=== PATIENT | male | born 1950 | race Caucasian/White ===

== ENCOUNTER 2020-09-09 06:57 | Day surgery (SDC) | payer MEDICARE, BC ==
--- NOTE | 2020-09-06 10:20 | PCM.PREANE ---
Preanesthetic Assessment - Procedure Proposed Procedure: Right Total Hip Arthroplasty - Anesthesia/Transfusion/Family Hx Anesthesia History: Prior Anesthesia Without Reaction Family History of Anesthesia Reaction: No Transfusion History: No Prior Transfusion(s) Intubation History: Unknown - Review of Systems General: No Symptoms Pulmonary: No Symptoms (ETOH: 1-2 beers per 2 week), Cough (dry allergy cough/post nasal drip) Cardiovascular: No Symptoms (HTN, elevated cholesterol, benign prostate hypertrophy) Gastrointestinal: No Symptoms (GERD-controlled) Neurological: No Symptoms Other: Reports: Sinus Problem (chronic sinus with also seasonal allergies noted.) - Physical Assessment NPO Status Date: 09/08/20 NPO Status Time: 21:00 Vital Signs: HR:68 Sat:97% Resp:16 B/P:145/76 Temp:97.5 Height: 1.8 m Weight: 83 kg ASA Class: 2 Mental Status: Alert & Oriented x3 Airway Class: Mallampati = 2 Dentition: Reports: Normal Dentition, Caries Thyro-Mental Finger Breadths: 3 Mouth Opening Finger Breadths: 3 ROM/Head Extension: Full Lungs: Clear to Auscultation, Normal Respiratory Effort Cardiovascular: Regular Rate, Regular Rhythm, No Murmurs - Lab Values: Laboratory Last Values MRSA (PCR) Negative 08/28/20 12:23 All labs reviewed and noted and within acceptable ranges to proceed with scheduled procedure. - Imaging/EKG Impressions: EKG: SR rate= 58, probable left atrial enlargement CXR: Spondylotic changes in spine. - Allergies Allergies/Adverse Reactions: Allergies Allergy/AdvReac Type Severity Reaction Status Date / Time No Known Allergies Allergy Verified 09/06/20 16:26 - Anesthesia Plan Pre-Op Medication Ordered: Other (PREOP oral meds(lyrica, tylenol, oxycodone) @0710) - Acknowledgements Anesthesia Type Planned: General Anesthesia, Spinal Pt an Appropriate Candidate for the Planned Anesthesia: Yes Alternatives and Risks of Anesthesia Discussed w Pt/Guardian: Yes Pt/Guardian Understands and Agrees with Anesthesia Plan: Yes PreAnesthesia Questionnaire - HOME MEDS Home Medications: Home Meds Cholecalciferol (Vitamin D3) [Vitamin D3] 5,000 unit PO DAILY 09/06/20 [History] Losartan [Cozaar] 100 mg PO DAILY 09/06/20 [History] Pantoprazole Sodium [Protonix] 40 mg PO DAILY 09/06/20 [History] Sildenafil [Viagra] 100 mg PO ASDIRECTED PRN 09/06/20 [History] hydroCHLOROthiazide [Hydrochlorothiazide] 25 mg PO DAILY 09/06/20 [History] Cyclobenzaprine [Flexeril] 10 mg PO BID PRN #20 tab 09/09/20 [Rx] Rivaroxaban [Xarelto] 10 mg PO DAILY #35 tab 09/09/20 [Rx] oxyCODONE 5 - 10 mg PO Q4H PRN #60 tab 09/09/20 [Rx] - CURRENT (IN HOUSE) MEDS Current Meds: Current Medications Morphine Sulfate 8 mg/Epinephrine HCl 0.3 mg/Cefuroxime Sodium 750 mg/Ketorolac Tromethamine 30 mg/Sodium Chloride 7.9 ml 0 mg .XX ASDIRECTED PRN PRN Reason: Pain Stop: 09/09/20 23:00 Lactated Ringer's (Ringers, Lactated) 1,000 mls @ 125 mls/hr IV ASDIRECTED JANETH Stop: 09/09/20 23:00 Lidocaine/Sodium Bicarbonate (Buffered Lidocaine 1% In Ns 8.4%) 0.25 ml IDERM ONETIME PRN PRN Reason: Prior to IV Start Stop: 09/09/20 18:00 Sodium Chloride (Saline Flush) 10 ml FLUSH ASDIRECTED PRN PRN Reason: Keep Vein Open Stop: 09/09/20 18:00
[~2020-09-09 06:57] MED LIST: Acetaminophen 325 MG Tab PO SCH; Ketamine 500 mg/10 ML MDV ONE; Ketorolac 30 MG/ML SDV ONE; Lactated Ringers 1,000 ML IV SCH; Lactated Ringers 1,000 ML ONE; Lidocaine 1% 4 ML ONE; Lidocaine 1%/Sod Bicarbonate in NS 8.4% 1 ML Syringe IDERM PRN; Midazolam 1 MG/ML 2 ML SDV ONE; Morphine 8 MG, EPINEPHrine 0.3 MG, Cefuroxime 750 MG, Ketorolac 30 MG, Sodium Chloride ... PRN; Ondansetron 4 MG/2 ML SDV ONE; Pregabalin 25 MG Cap PO SCH; Propofol 200 MG/20 ML SDV ONE; Sodium Chloride 0.9% 10 ML Syringe FLUSH PRN; ceFAZolin 1 GM Vial ONE; fentaNYL 100 MCG/2 ML SDV ONE; oxyCODONE ER 10 MG TAB.ER PO SCH
[2020-09-09] MEDS ORDERED: Vancomycin 1 GM SDV ONE (07:33)
[2020-09-09] MEDS ORDERED: Bupivacaine 0.25% 10 ML SDV ONE (07:33)
[2020-09-09] MEDS ORDERED: ePHEDrine 50 MG/ML SDV IVPUSH PRN (08:26)
[2020-09-09] MEDS ORDERED: fentaNYL 100 MCG/2 ML SDV IVPUSH PRN (08:26)
[2020-09-09] MEDS ORDERED: Ondansetron 4 MG/2 ML SDV IVPUSH PRN (08:26)
[2020-09-09] MEDS ORDERED: diphenhydrAMINE 50 MG/ML SDV IVPUSH PRN (08:26)
[2020-09-09] MEDS ORDERED: HYDROmorphone 0.5 MG/0.5 ML Syringe IVPUSH PRN (08:27)
[2020-09-09] MEDS ORDERED: Albuterol 0.083% 2.5 MG/3 ML Neb Soln NEB PRN (08:27)
[2020-09-09] MEDS ORDERED: Lactated Ringers 1,000 ML ONE ×2 (08:37)
[2020-09-09] MEDS ORDERED: ePHEDrine Sulfate/0.9% NaCl/Pf 25 MG/5 ML SYRINGE IV ONE (08:47)
[2020-09-09] MEDS ORDERED: Propofol 200 MG/20 ML SDV ONE (09:16)
--- NOTE | 2020-09-09 09:52 | PCM.POSTAN ---
POST ANESTHESIA ASSESSMENT - MENTAL STATUS Mental Status: Alert - VITAL SIGNS Vital Signs: Last Vital Signs Temp 98.1 09/09/20947 Pulse 57 09/09/20947 Resp 14 09/09/20947 BP 98/52 09/09/20947 Pulse Ox 97% 09/09/20947 - RESPIRATORY Respiratory Status: Respiratory Rate WNL, Airway Patent, O2 Saturation Stable, Supplemental Oxygen - CARDIOVASCULAR CV Status: Pulse Rate WNL, Blood Pressure Stable - GASTROINTESTINAL GI Status: No Symptoms - POST OP HYDRATION Hydration Status: Adequate & Stable
--- NOTE | 2020-09-09 10:46 | PCM48HPAN ---
Post Anesthesia Note - EVALUATION WITHIN 48HRS OF ANESTHETIC Vital Signs in Normal Range: Yes Patient Participated in Evaluation: Yes Respiratory Function Stable: Yes Airway Patent: Yes Cardiovascular Function Stable: Yes Hydration Status Stable: Yes Pain Control Satisfactory: Yes Nausea and Vomiting Control Satisfactory: Yes Mental Status Recovered: Yes Vital Signs: Last Vital Signs Temp 36.4 C 09/09/20 10:40 Pulse 68 09/09/20 07:00 Resp 14 09/09/20 10:40 BP 113/66 09/09/20 10:40 Pulse Ox 95 09/09/20 10:40 - COMMENTS/OBSERVATIONS Free Text/Narrative:: PACU nurse noted some PAC's in recovery with patient remaining asymptomatic.
[2020-09-09] MEDS ORDERED: oxyCODONE 5 MG Tab PO PRN (11:00)
--- NOTE | 2020-09-16 09:57 | PCM.OPNOTE ---
- General Post-Op/Procedure Note Date of Surgery/Procedure: 09/09/20 Operative Procedure(s): right total hip arthroplasty Pre Op Diagnosis: right hip osteoarthrosis Post-Op Diagnosis: Same Anesthesia Technique: Local, MAC, Spinal Primary Surgeon: Pb Carrillo Anesthesia Provider: Stephy Rubio Grave Digger: Christina Bhatia Grave Digger: Natalee Encarnacion EBL in mLs: 150 Complications: None Condition: Good Free Text/Narrative:: 56 cup 5 stem 28-2.7 MDM
--- NOTE | 2020-09-18 13:52 | OR ---
DATE OF OPERATION: 09/09/2020 SURGEON: Pb Carrillo MD OPERATION PERFORMED: Right total hip arthroplasty. PREOPERATIVE DIAGNOSIS: Right hip osteoarthrosis. POSTOPERATIVE DIAGNOSIS: Right hip osteoarthrosis. ANESTHESIA: Local MAC with spinal. ANESTHESIA PROVIDER: . ASSISTANTS: Christina Bhatia PA-C, and Natalee Encarnacion LPN. ESTIMATED BLOOD LOSS: 150 mL. COMPLICATIONS: None. CONDITION: Stable. IMPLANTS: 1. [place] size 56 mm Tritanium acetabular solid cup. 2. [place] size 5 Accolade II stem. 3. [place] size 28/42 MDM components, -2.7. DESCRIPTION OF PROCEDURE: The patient was identified in the preoperative holding area. Proper site was marked and identified by the surgeon. The patient was taken back to the operative theater, where after adequate anesthesia, the patient was placed in a left lateral decubitus position. Axillary roll was placed. All bony prominences were well padded. The patient's gluteal fold was parallel to the floor. Pegs were then placed and were well padded. Right hip was then sterilely prepped and draped in the usual sterile fashion. OR time-out was performed. The patient received 2 g IV Ancef. Standard posterior incision was made, centered over the greater trochanter. This was taken down to the IT band and gluteal fascia, which was incised along the incisional length. Charnley retractor was then placed. Short external rotators identified. Capsulotomy as well as takedown of the short external rotators was done from the level of the piriformis down to the lesser trochanter. Hip was then dislocated and femoral neck cut was completed. Attention was turned to the acetabulum. Anterior and posterior acetabular retractors were placed. Circumferential removal of the labrum as well as any pulvinar was done at this time. Starting with a 52 reamer, I was able to ream up to a 56 which was found to have adequate purchase and a good bony bleeding bed. A 56 mm Tritanium II acetabular cup was then impacted into anatomic position for the patient. At this time, MDM liner was impacted into place and attention was turned to the femur. Box chisel was used out laterally. Starter awl was placed down the canal. Starting with a 0 broach, I was able to broach up to a size 5 which was found to be rotationally and vertically stable. At this time, trial components were placed. We started with a 0, it was found to be just a small amount long, so we decided on a -2.7 and had adequate mormonism of leg lengths and was stable throughout range of motion. At this time, the trial implants were removed. The size 5 Accolade II stem was impacted into place and then the -2.7 mm MDM components were then impacted into place. The hip was then relocated. #5 Ethibond sutures were used for closure of the short external rotators and capsule. 1 L of pulse lavage irrigation was then irrigated through the hip along with IrriSept irrigation. Periarticular injection was completed. Topical vancomycin powder and tranexamic acid were then placed. #2 barbed suture was used for closure of the IT band and gluteal fascia. 2-0 Vicryl was used subcutaneously. Prineo was used for the skin. The patient tolerated the procedure well and was sent to PACU in stable condition. MMODAL /[id number]
== END 2020-09-09 15:03 | disposition home or self-care (01) ==
LOC: JD.SDS 06:57 → EDSTATUS 08:45 → JD.SDS 15:03
PROVIDERS: ATTEND Orthopaedic Surgery
DX: M16.11 Unilateral primary osteoarthritis, right hip (principal); N40.1 Benign prostatic hyperplasia with lower urinary tract symptoms; R39.12 Poor urinary stream; K22.70 Barrett's esophagus without dysplasia; I10 Essential (primary) hypertension; Z79.899 Other long term (current) drug therapy; Z98.890 Other specified postprocedural states; Z01.812 Encounter for preprocedural laboratory examination; Z20.828 Contact with and (suspected) exposure to other viral communicable diseases
CPT/HCPCS: 27130; 36415; 73501; 86850; 86900; 86901; 87641; 97110; 97116; 97161; A9270; C1776; J0171; J0690; J0697; J1885; J2001; J2250; J2270; J2370; J2405; J2704; J3010; J3370; J3490; J7120; U0002; 01214